=== PATIENT | male | born 1950 ===

== ENCOUNTER 2017-02-12 06:16 | Day surgery (SDC) | payer OTHER ==
[~2017-02-12] VITALS: Ht 170.2 cm; Wt 103.2 kg
[2017-02-12] MEDS ORDERED: PRIL40 PO (06:41)
[2017-02-12] MEDS ORDERED: MEGA MULTIVITAM1 TAB PO (06:41)
[2017-02-12] MEDS ORDERED: ZOCOR 40MG40 MG PO (06:41)
[2017-02-12] MEDS ORDERED: VITAMIN C500 MG PO (06:42)
[2017-02-12] MEDS ORDERED: MASON NATURAL1000 M1 PO (06:42)
[2017-02-12 06:51] VITALS: BP 122/86; PULSE 85; TEMP 97.8
[2017-02-12 07:55] VITALS: BP 117/75; PULSE 68; TEMP 97.8
[2017-02-12 08:15] VITALS: BP 119/79; PULSE 70
[2017-02-12 08:17] VITALS: BP 127/79; PULSE 60
== END 2017-02-12 08:40 | disposition home or self-care (01) ==
LOC: SDCO 06:16
DX: Z12.11 Encounter for screening for malignant neoplasm of colon (principal); K57.30 Diverticulosis of large intestine without perforation or abscess without bleeding; N40.0 Benign prostatic hyperplasia without lower urinary tract symptoms; K21.9 Gastro-esophageal reflux disease without esophagitis; E78.00 Pure hypercholesterolemia, unspecified; Z80.1 Family history of malignant neoplasm of trachea, bronchus and lung
CPT/HCPCS: OP; J2250; J2405; J3010; J7030